=== PATIENT | male | born 1940 | race Caucasian/White ===

== ENCOUNTER 2019-01-30 10:41 | Day surgery (SDC) | payer OTHER ==
[~2019-01-30] VITALS: Ht 172.7 cm; Wt 68.0 kg
[2019-01-30] MEDS ORDERED: CLARITIN-D1 TA2 PO (11:17)
[2019-01-30] MEDS ORDERED: PERCOCET 10/31 COMBO PO (15:52)
[2019-01-30 16:05] VITALS: BP 122/75
== END 2019-01-30 16:24 | disposition home or self-care (01) | DRG 514 ==
LOC: ORM 10:41
PROVIDERS: ATTEND Orthopaedic Surgery
PROC: 0LN70ZZ Release Right Hand Tendon, Open Approach (ICD-10-PCS; principal; 2019-01-30)
DX: M65.341 Trigger finger, right ring finger (principal); Z87.891 Personal history of nicotine dependence
CPT/HCPCS: J0131

== ENCOUNTER 2020-07-21 10:38 | Observation (INO) | payer OTHER, MEDICARE ==
[~2020-07-21] VITALS: Ht 172.7 cm; Wt 70.0 kg
[~2020-07-21 10:38] MED LIST: CLARITIN-D1 TA2 PO; PERCOCET 10/31 COMBO PO
[2020-07-21 11:08] LABS: GFR > 60 ML/MIN (>=60 (CALC)); GFR FOR AFR.AMER. > 60 ML/MIN (>=60 (CALC))
[2020-07-21 11:11] LABS: HEMATOCRIT 42.8 % (39.0-50.0); HEMOGLOBIN 14.1 g/dl (14.0-18.0); IMMATURE GRANULOCYTES 0.3 % (0.0-5.0); MEAN CELL VOLUME 94.3 fL CALC (80.0-100.0); MEAN CORPUSCULAR HGB 31.1 pG CALC (26.0-32.0); MEAN CORPUSCULAR HGB CONC 32.9 g/dL CAL (32.0-36.0); NEUT# 3.9 thou/uL (1.82-7.42); RED BLOOD COUNT 4.54 mill/uL (4.70-6.10)
[2020-07-21 11:23] LABS: ALBUMIN 4.3 g/dL (3.2-5.0); ALKALINE PHOSPHATASE 63 u/l (38-126); ANION GAP 12 (6-22 (CALC)); BILIRUBIN, TOTAL 0.7 mg/dL (0.0-1.4); BUN 15 mg/dL (8-23); BUN/CREATININE RATIO 16 (12-20 (CALC)); CARBON DIOXIDE 27 mmol/l (22-30); CHLORIDE 102 mmol/l (95-108); CREATININE 0.9 mg/dL (0.7-1.3); GFR > 60 ML/MIN (>=60 (CALC)); GFR FOR AFR.AMER. > 60 ML/MIN (>=60 (CALC)); SGOT/AST 25 u/l (19-48); SODIUM 137 mmol/l (137-146); TOTAL PROTEIN 7.1 g/dL (6.3-8.2)
[2020-07-21 15:45] VITALS: BP 167/62
[2020-07-21 16:08] VITALS: BP 154/94
[2020-07-21 19:18] VITALS: BP 123/82
[2020-07-22 04:59] VITALS: BP 154/88
[2020-07-22 07:22] VITALS: BP 151/97
[2020-07-22 15:25] VITALS: BP 162/97
[2020-07-22] MEDS ORDERED: MECLIZINE25 MG PO (16:49)
[2020-07-22] MEDS ORDERED: ASPIRIN 81 LOW81 MG PO (16:51)
[2020-07-22] MEDS ORDERED: AMLODIPINE BESYL5 MG PO (17:03)
[2020-07-22 17:07] LABS: CHOLESTEROL HDL RATIO 6.1 (<4.4 (CALC))
== END 2020-07-22 18:16 | disposition home or self-care (01) | DRG 69 ==
LOC: ED 10:38 → ED-I 11:13 → ED 11:13 → ED-I 12:15 → ED 12:32 → ED-I 12:33 → MS2 12:33
PROVIDERS: Family Medicine; Nurse Practitioner; ADMIT Internal Medicine; ATTEND Internal Medicine
DX: G45.9 Transient cerebral ischemic attack, unspecified (principal); I10 Essential (primary) hypertension; Z20.822 Contact with and (suspected) exposure to COVID-19
CPT/HCPCS: G0378; J1650; Q9967

== ENCOUNTER 2020-09-20 10:31 | Emergency (ER) | payer OTHER, MEDICARE ==
[~2020-09-20] VITALS: Ht 172.7 cm; Wt 75.0 kg
[~2020-09-20 10:31] MED LIST changes: +AMLODIPINE BESYL5 MG PO; +ASPIRIN 81 LOW81 MG PO; +MECLIZINE25 MG PO
[2020-09-20 11:43] VITALS: BP 126/71
== END 2020-09-20 12:00 | disposition home or self-care (01) | DRG 206 ==
LOC: ED 10:31
DX: S22.31XA Fracture of one rib, right side, initial encounter for closed fracture (principal); I10 Essential (primary) hypertension; R42 Dizziness and giddiness; W01.198A Fall on same level from slipping, tripping and stumbling with subsequent striking against other object, initial encounter

== ENCOUNTER 2021-07-04 08:57 | Emergency (ER) | payer OTHER, MEDICARE ==
[~2021-07-04] VITALS: Ht 172.7 cm; Wt 77.0 kg
[2021-07-04 09:33] VITALS: BP 151/81
[2021-07-04] MEDS ORDERED: ULTRAM50 MG PO (10:15)
[2021-07-04 10:34] VITALS: BP 151/81
== END 2021-07-04 11:03 | disposition home or self-care (01) | DRG 563 ==
LOC: ED 08:57
DX: S42.031A Displaced fracture of lateral end of right clavicle, initial encounter for closed fracture (principal); I10 Essential (primary) hypertension; W17.89XA Other fall from one level to another, initial encounter; Y93.89 Activity, other specified; Y92.009 Unspecified place in unspecified non-institutional (private) residence as the place of occurrence of the external cause

== ENCOUNTER 2022-02-23 10:31 | Emergency (ER) | payer OTHER, MEDICARE ==
[~2022-02-23] VITALS: Ht 172.7 cm; Wt 72.7 kg
[~2022-02-23 10:31] MED LIST changes: +ULTRAM50 MG PO
[2022-02-23 10:56] VITALS: BP 183/103
[2022-02-23 11:12] LABS: HEMATOCRIT 46.5 % (39.0-50.0); HEMOGLOBIN 15.6 g/dl (14.0-18.0); IMMATURE GRANULOCYTES 0.3 % (0.0-5.0); MEAN CELL VOLUME 93.8 fL CALC (80.0-100.0); MEAN CORPUSCULAR HGB 31.5 pG CALC (26.0-32.0); MEAN CORPUSCULAR HGB CONC 33.5 g/dL CAL (32.0-36.0); NEUT# 5.8 thou/uL (1.82-7.42); RED BLOOD COUNT 4.96 mill/uL (4.70-6.10); RED CELL DISTRI WIDTH 12.2 % (11.5-15.5)
[2022-02-23 11:21] LABS: ALBUMIN 4.9 g/dL (3.2-5.0); ALKALINE PHOSPHATASE 75 u/l (38-126); ANION GAP 17 (6-22 (CALC)); BILIRUBIN, TOTAL 0.9 mg/dL (0.0-1.4); BUN 18 mg/dL (8-23); BUN/CREATININE RATIO 17 (12-20 (CALC)); CARBON DIOXIDE 22 mmol/l (22-30); CHLORIDE 107 mmol/l (95-108); CREATININE 1.1 mg/dL (0.7-1.3); GFR FOR AFR.AMER. > 60 ML/MIN (>=60 (CALC)); GFR OTHER RACES > 60 ML/MIN (>=60 (CALC)); LIPASE 102 u/l (23-300); POTASSIUM 4.4 mmol/l (3.5-5.1); SODIUM 142 mmol/l (137-146); TOTAL PROTEIN 8.3 g/dL (6.3-8.2)
[2022-02-23 11:25] LABS: SGOT/AST 49 u/l (19-48)
[2022-02-23 12:00] VITALS: BP 138/76
[2022-02-23 12:15] VITALS: BP 124/79
[2022-02-23 12:44] LABS: URINE BILIRUBIN - DIPSTICK NEGATIVE (NEGATIVE); URINE BLOOD DIPSTICK LARGE (NEGATIVE); URINE COLOR YELLOW; URINE GLUCOSE - DIPSTICK NEGATIVE (NEGATIVE); URINE KETONE NEGATIVE (NEGATIVE); URINE LEUK ESTERASE NEGATIVE (NEGATIVE); URINE PH 6.5 (4.5-8.0); URINE PROTEIN - DIPSTICK NEGATIVE (NEG-TRACE); URINE SPECIFIC GRAVITY <=1.005; URINE UROBILINOGEN - DIPSTICK 0.2 E.U./dL (0.2)
[2022-02-23 12:49] LABS: URINE NITRITE - DIPSTICK NEGATIVE (Negative)
[2022-02-23 14:27] VITALS: BP 124/79
== END 2022-02-23 14:28 | disposition home or self-care (01) | DRG 300 ==
LOC: ED 10:31
PROVIDERS: Family Medicine
DX: I71.40 Abdominal aortic aneurysm, without rupture, unspecified (principal); N13.39 Other hydronephrosis; N20.2 Calculus of kidney with calculus of ureter; R10.31 Right lower quadrant pain; R31.9 Hematuria, unspecified
CPT/HCPCS: Q9967

== ENCOUNTER 2022-03-17 01:23 | Emergency (ER) | payer OTHER, MEDICARE ==
[~2022-03-17] VITALS: Ht 172.7 cm; Wt 70.5 kg
[2022-03-17] VITALS (7 sets, daily range): BP systolic 153–205; BP diastolic 76–117
[2022-03-17] MEDS ORDERED: NORVASC2.5 M1 PO (01:39)
[2022-03-17] MEDS ORDERED: MECLIZINE12.5 M1 PO (01:40)
[2022-03-17] MEDS ORDERED: ALLERGY NA50 MCG/ACT NAB (01:42)
[2022-03-17] MEDS ORDERED: TERAZOSIN1 MG PO (01:43)
[2022-03-17 04:28] LABS: URINE BILIRUBIN - DIPSTICK NEGATIVE (NEGATIVE); URINE BLOOD DIPSTICK MODERATE (NEGATIVE); URINE COLOR YELLOW; URINE GLUCOSE - DIPSTICK NEGATIVE (NEGATIVE); URINE KETONE NEGATIVE (NEGATIVE); URINE LEUK ESTERASE NEGATIVE (NEGATIVE); URINE PH 6.5 (4.5-8.0); URINE PROTEIN - DIPSTICK NEGATIVE (NEG-TRACE); URINE UROBILINOGEN - DIPSTICK 0.2 E.U./dL (0.2)
[2022-03-17 04:29] LABS: ALBUMIN 4.9 g/dL (3.2-5.0); ALKALINE PHOSPHATASE 92 u/l (38-126); AMYLASE 119 u/l (30-110); ANION GAP 17 (6-22 (CALC)); BUN 19 mg/dL (8-23); BUN/CREATININE RATIO 17 (12-20 (CALC)); CARBON DIOXIDE 25 mmol/l (22-30); CHLORIDE 108 mmol/l (95-108); CREATININE 1.1 mg/dL (0.7-1.3); GFR FOR AFR.AMER. > 60 ML/MIN (>=60 (CALC)); GFR OTHER RACES > 60 ML/MIN (>=60 (CALC)); LIPASE 437 u/l (23-300); POTASSIUM 4.1 mmol/l (3.5-5.1); SGOT/AST 31 u/l (19-48); SODIUM 146 mmol/l (137-146); TOTAL PROTEIN 7.7 g/dL (6.3-8.2)
[2022-03-17] MEDS ORDERED: CIPROFLOXACN500 MG PO (04:47)
[2022-03-17] MEDS ORDERED: METRONIDAZOLE500 MG PO (04:47)
[2022-03-17 05:13] LABS: BILIRUBIN, TOTAL 0.4 mg/dL (0.0-1.4)
[2022-03-17 05:16] LABS: HEMATOCRIT 43.9 % (39.0-50.0); HEMOGLOBIN 14.9 g/dl (14.0-18.0); IMMATURE GRANULOCYTES 0.7 % (0.0-5.0); MEAN CELL VOLUME 93.6 fL CALC (80.0-100.0); MEAN CORPUSCULAR HGB 31.8 pG CALC (26.0-32.0); MEAN CORPUSCULAR HGB CONC 33.9 g/dL CAL (32.0-36.0); NEUT# 13.25 thou/uL (1.82-7.42); RED BLOOD COUNT 4.69 mill/uL (4.70-6.10); RED CELL DISTRI WIDTH 12.2 % (11.5-15.5)
[2022-03-17 05:40] LABS: URINE NITRITE - DIPSTICK NEGATIVE (Negative)
[2022-03-17 05:56] LABS: URINE BACTERIA FEW hpf; URINE EPITHELIAL CELLS FEW EPI/hpf (0-FEW); URINE RBC 50-100 RBC/hpf (0-5)
[2022-03-18] MEDS ORDERED: HYDROCO/APAP1 T10 PO (17:43)
== END 2022-03-17 05:13 | disposition home or self-care (01) | DRG 300 ==
LOC: ED 01:23
PROVIDERS: Emergency Medicine
DX: I71.40 Abdominal aortic aneurysm, without rupture, unspecified (principal); K57.92 Diverticulitis of intestine, part unspecified, without perforation or abscess without bleeding; N20.0 Calculus of kidney; I10 Essential (primary) hypertension
CPT/HCPCS: Q9967

== ENCOUNTER 2022-03-18 14:08 | Emergency (ER) | payer OTHER, MEDICARE ==
[2022-03-18] VITALS (9 sets, daily range): BP systolic 136–176; BP diastolic 81–109
[~2022-03-18] VITALS: Ht 172.7 cm; Wt 68.2 kg
[~2022-03-18 14:08] MED LIST changes: +ALLERGY NA50 MCG/ACT NAB; +CIPROFLOXACN500 MG PO; +MECLIZINE12.5 M1 PO; +METRONIDAZOLE500 MG PO; +NORVASC2.5 M1 PO; +TERAZOSIN1 MG PO
[2022-03-18 15:37] LABS: URINE BILIRUBIN - DIPSTICK NEGATIVE (NEGATIVE); URINE BLOOD DIPSTICK LARGE (NEGATIVE); URINE COLOR RED; URINE GLUCOSE - DIPSTICK NEGATIVE (NEGATIVE); URINE KETONE TRACE mg/dL (NEGATIVE); URINE LEUK ESTERASE NEGATIVE (NEGATIVE); URINE PH 6.5 (4.5-8.0); URINE PROTEIN - DIPSTICK TRACE mg/dL (NEG-TRACE); URINE UROBILINOGEN - DIPSTICK 0.2 E.U./dL (0.2)
[2022-03-18 15:38] LABS: URINE NITRITE - DIPSTICK NEGATIVE (Negative)
[2022-03-18 15:45] LABS: URINE RBC TNTC RBC/hpf (0-5)
[2022-03-18 15:49] LABS: HEMATOCRIT 41.2 % (39.0-50.0); HEMOGLOBIN 13.9 g/dl (14.0-18.0); IMMATURE GRANULOCYTES 0.1 % (0.0-5.0); MEAN CELL VOLUME 94.5 fL CALC (80.0-100.0); MEAN CORPUSCULAR HGB 31.9 pG CALC (26.0-32.0); MEAN CORPUSCULAR HGB CONC 33.7 g/dL CAL (32.0-36.0); NEUT# 9.81 thou/uL (1.82-7.42); RED BLOOD COUNT 4.36 mill/uL (4.70-6.10); RED CELL DISTRI WIDTH 12.2 % (11.5-15.5)
[2022-03-18 16:13] LABS: ALBUMIN 4.3 g/dL (3.2-5.0); ALKALINE PHOSPHATASE 72 u/l (38-126); ANION GAP 14 (6-22 (CALC)); BUN 17 mg/dL (8-23); BUN/CREATININE RATIO 13 (12-20 (CALC)); CARBON DIOXIDE 23 mmol/l (22-30); CHLORIDE 107 mmol/l (95-108); CREATININE 1.3 mg/dL (0.7-1.3); GFR FOR AFR.AMER. > 60 ML/MIN (>=60 (CALC)); GFR OTHER RACES 53 ML/MIN (>=60 (CALC)); POTASSIUM 4.1 mmol/l (3.5-5.1); SGOT/AST 27 u/l (19-48); SODIUM 140 mmol/l (137-146)
[2022-03-18 16:16] LABS: BILIRUBIN, TOTAL 0.7 mg/dL (0.0-1.4)
[2022-03-18] MEDS ORDERED: HYDROCO/APAP1 T10 PO (17:43)
== END 2022-03-18 18:17 | disposition home or self-care (01) | DRG 694 ==
LOC: ED 14:08
PROVIDERS: Nurse Practitioner
DX: N20.1 Calculus of ureter (principal); I10 Essential (primary) hypertension

== ENCOUNTER 2023-01-10 12:12 | Emergency (ER) | payer OTHER, MEDICARE ==
[~2023-01-10] VITALS: Ht 172.7 cm; Wt 68.0 kg
[2023-01-10] VITALS (9 sets, daily range): BP systolic 123–145; BP diastolic 58–80
[~2023-01-10 12:12] MED LIST changes: +HYDROCO/APAP1 T10 PO
[2023-01-10 13:07] LABS: BASO% 0.1 % (0-3); HEMATOCRIT 40.2 % (39.0-50.0); HEMOGLOBIN 13.4 g/dl (14.0-18.0); IMMATURE GRANULOCYTES 0.2 % (0.0-5.0); LYMPH% 3.8 % (15-41); MEAN CELL VOLUME 94.1 fL CALC (80.0-100.0); MEAN CORPUSCULAR HGB 31.4 pG CALC (26.0-32.0); MEAN CORPUSCULAR HGB CONC 33.3 g/dL CAL (32.0-36.0); MONO% 3.2 % (2-13); NEUT# 17.85 thou/uL (1.82-7.42); NEUT% 92.7 % (42-76); RED BLOOD COUNT 4.27 mill/uL (4.70-6.10)
[2023-01-10] MEDS ORDERED: EZALLOR SPRINKL10 MG PO (13:13)
[2023-01-10] MEDS ORDERED: LOPRESSOR25 M1 PO (13:13)
[2023-01-10] MEDS ORDERED: ASPIRINCHW 81MG PO (13:14)
[2023-01-10 13:15] LABS: ALBUMIN 4.3 g/dL (3.2-5.0); ALKALINE PHOSPHATASE 61 u/l (38-126); ANION GAP 14 (6-22 (CALC)); BUN 18 mg/dL (8-23); BUN/CREATININE RATIO 16 (12-20 (CALC)); CARBON DIOXIDE 23 mmol/l (22-30); CHLORIDE 110 mmol/l (95-108); CREATININE 1.1 mg/dL (0.7-1.3); GFR FOR AFR.AMER. > 60 ML/MIN (>=60 (CALC)); GFR OTHER RACES > 60 ML/MIN (>=60 (CALC)); POTASSIUM 3.5 mmol/l (3.5-5.1); SGOT/AST 43 u/l (19-48); SODIUM 143 mmol/l (137-146); TOTAL PROTEIN 6.9 g/dL (6.3-8.2)
[2023-01-10 13:17] LABS: BILIRUBIN, TOTAL 1.5 mg/dL (0.2-1.3)
[2023-01-10 13:25] LABS: INTERNATIONAL NORMALIZED RATIO 1.1 RATIO (0.7-1.3); PROTHROMBIN TIME 10.8 SECONDS (9.0-12.5)
[2023-01-10] MEDS ORDERED: AMOXICILLIN500 M2 PO (14:52)
[2023-01-10 15:14] LABS: URINE BILIRUBIN - DIPSTICK Negative (NEGATIVE); URINE BLOOD DIPSTICK Small (NEGATIVE); URINE GLUCOSE - DIPSTICK Negative (NEGATIVE); URINE KETONE Negative (NEGATIVE); URINE LEUK ESTERASE Negative (NEGATIVE); URINE NITRITE - DIPSTICK Negative (Negative); URINE PROTEIN - DIPSTICK 100 mg/dL (NEG-TRACE); URINE SPECIFIC GRAVITY 1.025; URINE UROBILINOGEN - DIPSTICK 0.2 E.U./dL (0.2)
[2023-01-10 15:15] LABS: URINE COLOR Yellow; URINE WBC 0-2 WBC/hpf (0-5)
== END 2023-01-10 17:15 | disposition short-term general hospital (02) | DRG 280 ==
LOC: ED 12:12
PROVIDERS: Family Medicine
DX: I21.4 Non-ST elevation (NSTEMI) myocardial infarction (principal); J18.9 Pneumonia, unspecified organism; J96.00 Acute respiratory failure, unspecified whether with hypoxia or hypercapnia
CPT/HCPCS: J1650; Q9967